=== PATIENT | male | born 1970 | race Caucasian/White ===

== ENCOUNTER 2016-08-15 11:22 | Emergency (ER) | payer MEDICARE, MEDICAID | END 2016-08-15 15:06 | disposition home or self-care (01) | LOC: D.ER 11:22 | DX: B20 Human immunodeficiency virus [HIV] disease (principal); B37.0 Candidal stomatitis ==

== ENCOUNTER → 2016-08-28 15:53 | Outpatient (CLI) | payer MEDICARE, MEDICAID | END | disposition home or self-care (01) | LOC: D.LABREF 15:53 | PROVIDERS: Student in an Organized Health Care Education/Training Program | DX: B20 Human immunodeficiency virus [HIV] disease (principal); Z79.2 Long term (current) use of antibiotics ==

== ENCOUNTER → 2016-09-19 12:26 | Outpatient (CLI) | payer MEDICARE, MEDICAID | END | disposition home or self-care (01) | LOC: D.RAD 12:26 | DX: R05 Cough (principal) ==

== ENCOUNTER 2016-09-24 09:48 | Emergency (ER) | payer MEDICARE, MEDICAID ==
[2016-09-24 10:53] LABS: MCH 31.9 pg (26.0-34.0); MCHC 34.3 g/dL (31.0-37.0); MCV 93.1 fL (80.0-100.0); MEAN PLATELET VOLUME 11.2 fL (7.4-10.4); PLATELET COUNT 77 10x3/uL (130-400); RBC 3.76 10x6/uL (4.20-6.10); RDW 13.3 % (11.5-14.5); WBC 2.8 10x3/uL (4.8-10.8)
[2016-09-24 10:58] LABS: ALBUMIN 3.3 g/dL (3.4-5.0); ALKALINE PHOSPHATASE 146 U/L (46-116); ALT (SGPT) 29 U/L (10-68); CALC OSMOLALITY 270 mosm/kg (275-300); CALCIUM 8.8 mg/dL (8.5-10.1); CARBON DIOXIDE 27.1 mmol/L (21.0-32.0); CHLORIDE - SERUM 104 mmol/L (98-107); CREATININE - SERUM 0.9 mg/dL (0.6-1.3); GLUCOSE 97 mg/dL (74-106); POTASSIUM - SERUM 3.8 mmol/L (3.5-5.1); PROTEIN - SERUM 7.2 g/dL (6.4-8.2); SODIUM 136 mmol/L (136-145); UREA NITROGEN 10 mg/dL (7-18); eGFR NON AFRICAN AMERICAN > 90 mL/min (90-120)
[2016-09-24 11:21] LABS: EOSINOPHILS 4 % (0-7); LYMPHOCYTES 25 % (15-50); MONOCYTES 10 % (2-11); NEUTROPHILS 60 % (40-80)
[2016-09-24 11:22] LABS: PLATELET ESTIMATE DECREASED
== END 2016-09-24 14:25 | disposition home or self-care (01) ==
LOC: D.ER 09:48
PROVIDERS: Family Medicine
DX: M54.30 Sciatica, unspecified side (principal); L03.211 Cellulitis of face; B20 Human immunodeficiency virus [HIV] disease; F17.200 Nicotine dependence, unspecified, uncomplicated

== ENCOUNTER 2018-09-01 01:31 | Emergency (ER) | payer MEDICARE ==
[~2018-09-01] VITALS: Ht 185.4 cm; Wt 82.7 kg
[2018-09-01 01:41] VITALS: Ht 185.4 cm; Wt 82.7 kg
[2018-09-01 02:15] LABS: APPEARANCE CLOUDY (CLEAR); BACTERIA NONE SEEN /hpf (NONE SEEN); BILIRUBIN NEGATIVE (NEGATIVE); COLOR DK YELLOW (YELLOW); EPITHELIAL CELLS 0-5 /hpf (0-5); GLUCOSE NEGATIVE (NEGATIVE); KETONE SMALL mg/dL (NEGATIVE); NITRITE NEGATIVE (NEGATIVE); PROTEIN TRACE mg/dL (NEGATIVE); RED CELLS - URINE >50 /hpf (0-5); SPECIFIC GRAVITY 1.025 (1.005-1.020); UROBILINOGEN NORMAL (NORMAL); WHITE CELLS - URINE NSEEN /hpf (0-5)
[2018-09-01 02:20] LABS: EOSINOPHILS 4.2 % (0-7); HEMATOCRIT 42.9 % (42.0-54.0); HEMOGLOBIN 15.3 g/dL (13.5-17.5); IMMATURE GRANULOCYTES 0.2 % (0-5); MCHC 35.7 g/dL (31.0-37.0); MCV 92.7 fL (80.0-100.0); MEAN PLATELET VOLUME 8.9 fL (7.4-10.4); MONOCYTES 9.5 % (2-11); NEUTROPHILS 47.1 % (40-80); RBC 4.63 10x6/uL (4.20-6.10); RDW 11.8 % (11.5-14.5); WBC 8.2 10x3/uL (4.8-10.8)
[2018-09-01 02:33] LABS: ALBUMIN 3.8 g/dL (3.4-5.0); ALKALINE PHOSPHATASE 128 U/L (46-116); ALT (SGPT) 22 U/L (10-68); AMYLASE - SERUM 52 U/L (25-115); BILIRUBIN - TOTAL 0.29 mg/dL (0.2-1.3); CALC OSMOLALITY 276 mosm/kg (275-300); CALCIUM 9.4 mg/dL (8.5-10.1); CARBON DIOXIDE 26.2 mmol/L (21.0-32.0); CHLORIDE - SERUM 106 mmol/L (98-107); CREATININE - SERUM 1.1 mg/dL (0.6-1.3); GLUCOSE 141 mg/dL (74-106); LIPASE 93 U/L (73-393); POTASSIUM - SERUM 3.8 mmol/L (3.5-5.1); PROTEIN - SERUM 7.5 g/dL (6.4-8.2); SODIUM 140 mmol/L (136-145); eGFR NON AFRICAN AMERICAN 77 mL/min (90-120)
[2018-09-01 02:36] LABS: PLATELET COUNT 235 10x3/uL (130-400)
[2018-09-01 02:54] LABS: UREA NITROGEN 16 mg/dL (7-18)
[2018-09-01] MEDS ORDERED: FLOMAX0.4 MG PO (04:21)
[2018-09-01] MEDS ORDERED: HYDROCODON-ACE1 EAC7 PO (04:21)
[2018-09-01 04:55] VITALS: BP 125/81
== END 2018-09-01 04:56 | disposition home or self-care (01) ==
LOC: D.ER 01:31
PROVIDERS: Family Medicine
DX: N20.1 Calculus of ureter (principal); R10.12 Left upper quadrant pain; R10.32 Left lower quadrant pain

== ENCOUNTER 2018-09-18 01:13 | Inpatient (IN) | payer MEDICARE ==
[~2018-09-18] VITALS: Ht 185.4 cm; Wt 84.1 kg
--- NOTE | ~2018-09-18 | HEMODYNAMI ---
PATIENT:FRANCOIS REAGAN MEDICAL RECORD: [id number] : 74 [facility] D.2125 ADMISSION DATE: 09/18/18 Generatedon:09/18/201812:38 Patient name: FRANCOIS REAGAN Patient #: [id number] SSN: : 1970 Date of study: 09/18/2018 Page: Of Hemodynamic Procedure Report Patient Data Patient Demographics Procedure consent was obtained First Name: FRANCOIS Gender: Male Last Name: TEZ : 1970 [facility] Initial: L Age: 48 year(s) Patient #: [id number] Race: Unknown Additional ID: [id number] Contact details Address: [address] [place] [address] State: [place] City: [facility] Zip code: [address] Past Medical History Allergies Allergen Reaction Date Comments Reported Other allergy 09/18/2018 sulfa Admission Admission Data Admission Date: 09/18/2018 Admission Time: 10:49 Admit Source: Emergency department Room #: D.2125 Lab Results Lab Result Date: 09/18/2018 Lab Result Time: 1:26 Biochemistry Name Units Result Min Max BUN mg/dl 13 --(--*-)-- 7 18 Creatinine mg/dl 1.1 --(--*-)-- 0.6 1.3 CBC Name Units Result Min Max Hematocrit % 46.7 --(-*--)-- 42 54 Hemoglobin g/dl 17 --(---*)-- 13.5 17.5 Procedure Procedure Types Cath Procedure Diagnostic Procedure LHC LHC w/Coronaries FFR/IVUS FFR Initial Sedation Charges Moderate Sedation up to 15 minutes PCI Procedure Coronary Stent Coronary Stent Initial Procedure Description Procedure Date Procedure Date: 09/18/2018 Procedure Start Time: 12:17 Procedure End Time: 12:37 Procedure Staff Name Function Rodney Herring MD Performing Physician Delroy Morrow RT Monitor Hank Pino RT Scrub Mariano Mccain RN Nurse Etienne Benites RN Braille Coder Procedure Data Cath Procedure Fluoroscopy Diagnostic fluoroscopy Total fluoroscopy Time: 4.5 time: 4.5 min min Diagnostic fluoroscopy Total fluoroscopy dose: 364 dose: 364 mGy mGy Contrast Material Contrast Material Type Amount (ml) Isovue 300 95 Entry Location Entry Primary Successful Side Size Upsize Upsize Entry Closure Zuniga ccessful Closure Location (Fr) 1 (Fr) 2 (Fr) Remarks Device Remarks Radial Right 6 Fr Mechanical artery Short Compression Estimated blood loss: 10 ml Diagnostic catheters Device Type Used For End Catheter Placement DIAGNOSTIC [place] 4.5 5Fr Procedure catheter ([id number]) Procedure Complications No complications Procedure Medications Medication Administration Route Dosage 0.9% NaCl I.V. 100 ml/hr Oxygen etCO2 Nasal cannula 2 l/min Heparin Flush Bag added to field 2 bags (1000units/500ml NS) Lidocaine 2% added to field 20 Radial Cocktail added to field 1 syringe (Verapamil 2mg/Nitro 400mcg/Heparin 1500units) Versed I.V. 2 mg Fentanyl I.V. 100 mcg Radial Cocktail I.A. 1 syringe (Verapamil 2mg/Nitro 400mcg/Heparin 1500units) Heparin Bolus I.V. 4000 units Versed I.V. 2 mg Hemodynamics Rest HGB: 17 (g/dl) Heart Rate: 66 (bpm) Snapshots Pre Cath Intra NCS Post Cath Vital Signs Time Heart Resp SPO2 etCO2 NIBP Rhythm Pain Sedation Rate (ipm) (%) (mmHg) (mmHg) Status Level (bpm) 12:02:46 64 14 99 29.4 116/85(99) NSR 0 (11) 10(A) , No pain 12:06:50 63 15 100 31.7 114/73(90) NSR 0 (11) 10(A) , No pain 12:10:53 62 13 99 34.7 107/71(89) NSR 0 (11) 10(A) , No pain 12:14:55 65 12 97 35.4 99/73(88) NSR 0 (11) 10(A) , No pain 12:18:57 73 15 98 27.9 98/65(81) NSR 0 (11) 10(A) , No pain 12:22:59 79 14 95 29.4 89/59(77) NSR 0 (11) 10(A) , No pain 12:26:56 78 15 94 30.9 97/61(83) NSR 0 (11) 10(A) , No pain 12:30:58 75 12 95 32.4 93/63(84) NSR 0 (11) 10(A) , No pain 12:34:57 69 12 95 31.7 94/63(81) NSR 0 (11) 10(A) , No pain Medications Time Medication Route Dose Verified Delivered Reason Not es Effectiveness by by 12:05:28 0.9% NaCl I.V. 100 Mariano Mariano Per physician ml/hr Adán Mccain RN RN 12:05:37 Oxygen etCO2 2 l/min Mariano Mariano for low 02 sats Nasal Lorigan Adán cannula RN RN 12:05:51 Heparin Flush added 2 bags Mariano Mariano used for Bag to Lorigan Adán procedure (1000units/500ml field RN RN NS) 12:06:01 Lidocaine 2% added 20ml Mariano Mariano for local to vial Lorigan Lorigan anesthetic field HAYNES RN 12:06:11 Radial Cocktail added 1 Mariano Mariano used for (Verapamil to syringe Lorigan Lorping procedure 2mg/Nitro field HAYNES RN 400mcg/Heparin 1500units) 12:15:54 Versed I.V. 2 mg Mariano Mariano for sedation Adán Mccain RN RN 12:16:02 Fentanyl I.V. 100 mcg Mariano Mariano for sedation Adán Mccain RN RN 12:18:15 Radial Cocktail I.A. 1 Mariano Rodney for (Verapamil syringe Lorigan Tauth MD vasodilation 2mg/Nitro RN 400mcg/Heparin 1500units) 12:21:49 Versed I.V. 2 mg Mariano Mariano for sedation Adán Mccain RN RN 12:23:02 Heparin Bolus I.V. 4000 Mariano Mariano for units Lorigan Adán anticoagulation RN lead portfolio manager Log Time Note 10:45:54 Etienne Benites RN sent for patient. Start room use. 11:52:19 Informed consent obtained and on chart 11:52:34 Admit Source: Emergency department 11:52:52 Diagnostic Cath status Elective 11:53:02 Time tracking: Regular hours (M-F 7:00 - 5:00) 11:53:05 Plan of Care:Hemodynamics will remain stable., Cardiac rhythm will remain stable., Comfort level will be maintained., Respiratory function will remain adequate., Patient/ family verbilizes understanding of procedure., Procedure tolerated without complication., Recovers from procedure without complications.. 11:55:13 Lab Result : Hemoglobin 17 g/dl :: Lab Result : Creatinine 1.1 mg/dl :: Lab Result : BUN 13 mg/dl :: Lab Result : Hematocrit 46.7 % 11:55:23 Lab results completed and on chart. 11:56:48 Patient received from Med II to CCL 2 Alert and oriented. Tansferred to table in Supine position. 11:56:49 Warm blankets applied, and ilan hugger turned on for patient comfort. 11:56:49 Correct patient and procedure confirmed by team. 11:56:50 ECG and BP/O2 sat monitors applied to patient. 11:56:51 Pre-procedure instructions explained to patient. 11:56:51 Pre-op teaching completed and patient verbalized understanding. 11:56:53 Family in patients room. 11:56:55 Patient NPO since Midnight. 11:57:11 Patient allergic to Other allergysulfa 12:01:48 Vital chart was started 12:05:28 0.9% NaCl 100 ml/hr I.V. was administered by Mariano Mccain RN; Per physician; 12:05:37 Oxygen 2 l/min etCO2 Nasal cannula was administered by Mariano Mccain RN; for low 02 sats; 12:05:51 Heparin Flush Bag (1000units/500ml NS) 2 bags added to field was administered by Mariano Mccain RN; used for procedure; 12:06:01 Lidocaine 2% 20ml vial added to field was administered by Mariano Mccain RN; for local anesthetic; 12:06:11 Radial Cocktail (Verapamil 2mg/Nitro 400mcg/Heparin 1500units) 1 syringe added to field was administered by Mariano Mccain RN; used for procedure; 12:12:00 Baseline sample Acquired. 12:12:03 Rhythm: sinus rhythm 12:12:04 Full Disclosure recording started 12:12:08 H&P Date Dictated: 09/18/2018 Within 30 days and on chart.. 12:12:11 Is the patient allergic to Iodine/contrast media? No. 12:12:23 Is patient on blood thinner?Yes 12:: ACC The patient was administered the following blood thiners within the last 24 hours: ACCPlavix 12:12:31 Patient diabetic? No. 12:12:34 Previous problem with sedation/anesthesia? No ? 12:12:36 Snore? Yes 12:12:37 Sleep apnea? No 12:12:37 Deviated septum? No 12:12:38 Opens mouth fully? Yes 12:12:39 Sticks out tongue? Yes 12:12:40 Airway obstruction? No ? 12:12:44 Dentures? Yes in tight 12:12:48 Pre procedure: right dorsailis pedis pulse 2+ Normal; easily identifiable; not easily obliterated 12:12:49 Modified Theo's test Ulnar < 7 seconds 12:12:50 Patient pain scale 0/10 ?. 12:12:56 IV patent on arrival in left forearm with 0.9% NaCl at [facility]. 12:13:01 Right Radial & Right Groin area was prepped with chlora-prep and draped in sterile fashion 12:13:03 Alarms reviewed by R. N. 12:13:03 Sharps counted by scrub and verified by R.N. 12:13:08 ACIST Syringe (35482) opened to sterile field. 12:13:08 Bag Decanter (2002S) opened to sterile field. 12:13:08 Medline Cath Pack ([id number]) opened to sterile field. 12:13:09 ACIST Hand Control (23001) opened to sterile field. 12:13:10 ACIST Manifold (66145) opened to sterile field. 12:13:11 Tegaderm 4 x 4 (1626W) opened to sterile field. 12:13:11 DIAGNOSTIC Multipack 5Fr catheter set (WG0538) opened to sterile field. 12:13:13 EMERALD Guide Wire (161-892) opened to sterile field. 12:13:23 Physician paged 12:15:12 Physician arrived 12:15:12 --------ALL STOP TIME OUT------ 12:15:13 Final Timeout: patient, procedure, and site verified with staff and physician. All members of the team are in agreement. 12:15:14 Right Radial & Right Groin site verified by team. 12:15:16 Maximum allowable Isovue 300 dose 300ml. Physician notified. (300ml for normal creatinines. For patients with creatinine of 1.7 or higher multiply weight(kg) x 5 divided by creatinine.) 12:15:19 Fire Safety Assessment: A--An alcohol-based skin anteseptic being used preoperatively., C--Open oxygen or nitrous oxide is being used., D--An ESU, laser, or fiber-optic light is being used. 12:15:21 Physical assessment completed. ASA score P 2 - A patient with mild systemic disease as per Rodney Herring MD. 12:15:23 Sedation plan: IV Moderate Sedation Medication:Versed, Fentanyl 12:15:54 Versed 2 mg I.V. was administered by Mariano Mccain RN; for sedation; 12:16:02 Fentanyl 100 mcg I.V. was administered by Mariano Mccain RN; for sedation; 12:17:29 Procedure started. 12:17:34 Local anesthetic to right radial artery with Lidocaine 2% by Rodney Herring MD.INITIAL ACCESS ONLY 12:17:43 A 6 Fr Short sheath was inserted into the Right Radial artery 12:17:54 Zero performed for pressure channel P1 12:18:15 Radial Cocktail (Verapamil 2mg/Nitro 400mcg/Heparin 1500units) 1 syringe I.A. was administered by Rodney Herring MD; for vasodilation; 12:18:47 SHEATH 6FR Slender (22-6927) opened to sterile field. 12:18:56 A DIAGNOSTIC [place] 4.5 5Fr catheter (833496) was advanced over the wire and used for Procedure. 12:19:08 LV gram done using JENKINS 12:19:10 Injector settings: Ml/sec: 5, Volume: 15, 12:19:12 LV hemodynamics recorded. 12:19:43 EF : 40 % 12:20:04 LCA angiography performed. 12:20:55 RCA angiography performed. 12:20:57 Catheter exchanged over wire. 12:21:10 CHOICE PT Extra Support 182cm wire ([id number]) opened to sterile field. 12:21:11 INFLATOR Merit BasixCompak (AJ1663) opened to sterile field. 12:21:42 GUIDE 6FR XBLAD 3.5 catheter ([id number]) opened to sterile field. 12:21:49 Versed 2 mg I.V. was administered by Mariano Lorigan RN; for sedation; 12:22:45 6 Fr xblad 3.5 guide catheter was inserted over the wire 12:23:02 Heparin Bolus 4000 units I.V. was administered by Mariano Mccain RN; for anticoagulation; 12:24:11 choice pt es wire advanced. 12:24:13 Wire advanced across lesion. 12:24:54 Pre PCI Site: [place] pLAD has 97% stenosis. 12:25:15 Place stent Inflation Number: 1 A COBRA RX 3.0 X 30 Stent was prepped and advanced across the Prox LAD 97. The stent was deployed at 14 AL for 0:10 (min:sec) 0. 12:25:51 Stent catheter was removed intact over wire. 12:25:52 Wire removed. 12:25:53 Guide catheter removed. 12:26:00 Post PCI Site: [place] pLAD has 0% stenosis. 12:26:07 GUIDE 6FR AR 1.0 catheter ([id number]) opened to sterile field. 12:26:07 [employer] Verrata Plus pressure wire (35965J) opened to sterile field. 12:26:13 6 Fr ar 1 guide catheter was inserted over the wire 12:28:22 FFR/IFR wire advanced. 12:29:40 Wire advanced across lesion. 12:31:50 mRCA lesion measured at 0.96 with IFR 12:33:38 Wire removed. 12:33:40 Guide Catheter removed. 12:33:49 TR BAND Standard ([id number]) opened to sterile field. 12:33:56 Sheath removed intact; hemostasis achieved with Mechanical Compression to the Right Radial artery. 12:33:57 Procedure ended.(Physican Out) 12:35:10 Fluoroscopy time 04.50 minutes. 12:35:14 Fluoroscopy dose: 364 mGy 12:35:14 Flurop Dose total: 364 12:35:33 Contrast amount:Isovue 300 95ml. 12:35:34 Sharps counted by scrub and verified by R.N. 12:35:35 TR band inflated with 12cc of air. 12:35:36 Insertion/operative site no bleeding no hematoma. 12:35:41 Post right radial artery:stable, soft, clean and dry 12:35:43 Post Procedure Pulses reassessed and unchanged 12:35:45 Post-procedure physical assessment completed. ASA score P 2 - A patient with mild systemic disease as per Rodney Herring MD. 12:35:47 Post procedure rhythm: unchanged. 12:35:49 Estimated blood loss: 10 ml 12:35:51 Post procedure instruction explained to patient.Patient verbalizes understanding. 12:35:51 Patient needs reinforcement of post procedure teaching. 12:36:12 Procedure type changed to Cath procedure, Diagnostic procedure, LHC, LHC w/Coronaries, FFR/IVUS, FFR Initial, Sedation Charges, Moderate Sedation up to 15 minutes, PCI procedure, Coronary Stent, Coronary Stent Initial 12:37:15 Procedure and supply charges have been captured, reviewed, submitted and are correct. 12:37:18 Procedure Complication : No complications 12:37:20 Vital chart was stopped 12:37:21 See physician's report for complete and final results. 12:37:22 Report given to Pre/Post Procedure Room. 12:37:25 Patient transfered to Pre/Post Procedure Room with Stretcher. 12:37:27 Procedure ended. 12:37:27 Full Disclosure recording stopped 12:38:01 End room use (Document Last) Intervention Summary Intervention Notes Time ActionType Lesion and Equipment Action# Pressure Duration Attributes Used 12:25:15 Place stent Prox LAD COBRA RX 1 14 00:10 3.0 X 30 Stent Device Usage Item Name Manufacture Quantity Catalog Number Hospital Part Current Minimal Lot# / Charge Number Stock Stock Serial# Code ACIST Syringe Acist 1 73769 738079 924596 252240 20 (78360) Medical Systems Inc Bag Decanter Microtek 1 2001S 979432 16583 945285 5 () Medical Inc. Medline Cath Medline 1 [id number] 652643 21008 713511 5 Pack ([id number]) ACIST Hand Acist 1 66032 727566 932426 142130 5 Control Medical (56796) Systems Inc ACIST Manifold Acist 1 27195 600331 205330 327999 5 (75297) Medical Systems Inc Tegaderm 4 x 4 3M 1 1626W 055511 725077 414316 5 (1626W) DIAGNOSTIC Cardinal 1 [id number] 714235 77835 264265 30 Multipack 5Fr Health catheter set (DN9901) EMERALD Guide Cardinal 1 502-455 534317 537694 333864 5 Wire (502455) Health SHEATH 6FR Terumo 1 [id number] 544803 718053 263630 5 Slender (80-1060) DIAGNOSTIC Terumo 1 40-8882 149800 939893 807101 5 [place] 4.5 5Fr catheter (209817) CHOICE PT [place] 1 [id number] 294922 648607 679064 5 Extra Support Scientific 182cm wire ([id number]) INFLATOR Merit Merit 1 GQ8532 870439 187929 931734 15 [email or web address] Medical (AY9912) GUIDE 6FR Cardinal 1 [id number] 455057 522122 230471 10 XBLAD 3.5 Health catheter ([id number]) COBRA RX 3.0 X Celonova 1 544-91-18223 857459 250242019 0651115 8 5 [id number] 30 stent Biosciences (217-25-37714) GUIDE 6FR AR Medtronic 1 [id number] 271717 11366 068382 1 1.0 catheter (ZH2XE65) [place] 1 93593X 843886 364432411 352659 5 Verrata Plus pressure wire (30809D) TR BAND Terumo 1 [id number]-[id number] 221605 935745 261718 40 Standard ([id number]) Signature Audit [place] Stage Time Signature Unsigned Intra-Procedure 09/18/2018 Delroy Morrow 12:38:47 PM RT(R) Signatures Monitor : Delroy Morrow RT Signature : Date : Time : [facility] [address] [place] [address]
--- NOTE | ~2018-09-18 | DS ---
PATIENT:FRANCOIS ANDERSON :74 MEDICAL RECORD: [id number] DISCHARGE SUMMARY ADMISSION DATE: 09/18/18 DISCHARGE DATE: 09/18/18 DIAGNOSES: 1. Non-Q-wave myocardial infarction. 2. Coronary artery disease. 3. Percutaneous transluminal coronary angioplasty stent, left anterior descending this admission. HOSPITAL COURSE: Mr. Anderson presents with anginal symptomatology, non-Q-wave myocardial infarction, found to have 99% stenosis of the LAD, underwent successful PTCA stent of the LAD, discharged home with the addition of aspirin, Plavix, Pravachol to his medical regimen. No beta alexa was undertaken due to resting bradycardia. He will follow up with [facility] in 1 month. TRANSINT:[id number] Voice Confirmation ID: [id number] DOCUMENT ID: [id number] CHERELLE JACOBS MD CC: [id number] DICTATION DATE: 09/18/18 1235 TIMBER TREATMENT PLANT OPERATOR: 09/19/18 0449 DIS IN 09/18/18 [facility] [address] [id number]
[~2018-09-18 01:13] MED LIST: FLOMAX0.4 MG PO; HYDROCODON-ACE1 EAC7 PO
[2018-09-18] MEDS ORDERED: JENTADUETO 2.51 EACH PO (01:19)
[2018-09-18 01:32] LABS: BASOPHILS 0.7 % (0-2); EOSINOPHILS 3.6 % (0-7); HEMATOCRIT 46.7 % (42.0-54.0); IMMATURE GRANULOCYTES 0.2 % (0-5); LYMPHOCYTES 33.9 % (15-50); MCHC 36.4 g/dL (31.0-37.0); MCV 90.7 fL (80.0-100.0); MEAN PLATELET VOLUME 9.1 fL (7.4-10.4); MONOCYTES 9.7 % (2-11); NEUTROPHILS 51.9 % (40-80); PLATELET COUNT 226 10x3/uL (130-400); RBC 5.15 10x6/uL (4.20-6.10); RDW 11.6 % (11.5-14.5); WBC 8.7 10x3/uL (4.8-10.8)
[2018-09-18 01:46] LABS: APTT 26.5 SECONDS (22.8-39.4); PROTIME 12.7 SECONDS (11.6-15.0)
[2018-09-18 01:50] LABS: ALBUMIN 3.9 g/dL (3.4-5.0); ALKALINE PHOSPHATASE 139 U/L (46-116); ALT (SGPT) 22 U/L (10-68); BILIRUBIN - TOTAL 0.26 mg/dL (0.2-1.3); CALC OSMOLALITY 281 mosm/kg (275-300); CALCIUM 9.6 mg/dL (8.5-10.1); CARBON DIOXIDE 26.9 mmol/L (21.0-32.0); CHLORIDE - SERUM 104 mmol/L (98-107); CREATININE - SERUM 1.1 mg/dL (0.6-1.3); GLUCOSE 116 mg/dL (74-106); PROTEIN - SERUM 7.7 g/dL (6.4-8.2); SODIUM 141 mmol/L (136-145); UREA NITROGEN 13 mg/dL (7-18); eGFR NON AFRICAN AMERICAN 76 mL/min (90-120)
[2018-09-18 02:09] LABS: CKMB 1.6 U/L (0.0-3.6); CREATINE KINASE 115 UL (21-232); MAGNESIUM - SERUM 1.9 mg/dL (1.8-2.4)
[2018-09-18 02:10] LABS: TROPONIN-I 0.153 ng/mL (0.000-0.060)
[2018-09-18 02:29] VITALS: BP 122/76
[2018-09-18 03:30] VITALS: BP 118/76
[2018-09-18 04:29] VITALS: BP 109/67
--- NOTE | 2018-09-18 05:00 | NUR ---
PATIENT TO THE FLOOR VIA WHEELCHAIR. SET UP IV PUMP, PATIENT STATES HE HAS NO NEEDS AT THIS TIME HE IS JUST TIRED.
[2018-09-18 05:13] VITALS: BP 101/51; Ht 185.4 cm; Wt 84.1 kg
--- NOTE | 2018-09-18 07:25 | NUR ---
ROUNDING DONE WITH PATIENT LAYING ON LEFT SIDE RESTING WITH EYES CLOSED, RESP EVEN. ON ROOM AIR. LEFT AC PIV SEEN WITH NS INFUSING AT 125 CC/HR. NPO STATUS UNTIL SEEN PER CARDIOLOGY. ON HEART MONITOR SHWOING SR, HR 55. WILL MONITOR.
--- NOTE | 2018-09-18 07:43 | NUR ---
PATIENT REFUSES TO WEAR SCD'S.
[2018-09-18 09:47] VITALS: BP 94/62
--- NOTE | 2018-09-18 10:19 | NUR ---
UP TO USE RESTROOM, HIBICLENS PREP DONE FOR HEART CATH. PRE-OP MEDS GIVEN ALONG WITH PLACING PATIENT ON NASAL CANNULA AT 2L.
--- NOTE | 2018-09-18 10:25 | HP ---
PATIENT: FRANCOIS ANDERSON MEDICAL RECORD: [id number] ACCOUNT: [id number] LOCATION:[address] : 74 ADMISSION DATE: 09/18/18 PCP: [facility] HISTORY AND PHYSICAL EXAMINATION DIAGNOSES: 1. Non-Q-wave myocardial infarction. 2. Coronary artery disease. 3. Family history of coronary artery disease. 4. Human immunodeficiency virus. HISTORY OF PRESENT ILLNESS: Mr. Anderson has no past history of coronary artery disease. He presents with 1 week of severe chest pain last night. His troponin is positive for non-Q-wave myocardial infarction. He continues to have episodes of chest pain this morning. His heart rate is optimal at 58. Systolic blood pressure is optimal at 109. PHYSICAL EXAMINATION: GENERAL APPEARANCE: Well-nourished, well-developed, appears stated age. Level of distress, comfortable. PSYCHIATRIC: Mental status, alert, normal affect. Orientation, oriented to time, place and person. EYES: Lids and conjunctiva, noninjected. No discharge, no pallor. ENT: Lips, teeth, gums, normal dentition. Oropharynx, no cyanosis, no pallor. NECK: Carotid arteries, bilateral normal upstroke, no bruits, no thrills. JUGULAR VEINS: No jugular venous pressure or distention. CERVICAL LYMPH NODES: Nontender, nonenlarged. THYROID: Not enlarged. Nontender. No nodules. LUNGS: Respiratory effort, unlabored. CHEST: Normal curvature. No thoracic deformity. No chest wall tenderness. Percussion, resonant. Auscultation, clear. No wheezes, no rales, no rhonchi. CARDIOVASCULAR: Precordial exam, nondisplaced. No heaves or pericardial thrills. Rate and rhythm, regular. Heart sounds, normal S1, normal S2. No S3, no gallop, no rub. Systolic murmur, not heard. Diastolic murmur, not heard. EXTREMITIES: No cyanosis, no edema. Peripheral pulses, full and equal in all extremities, except as noted. No bruits appreciated. ABDOMEN: Soft, nondistended. Normal aorta. No bruit. Nontender. No masses. Liver, nontender, no hepatomegaly. Spleen, nontender, no splenomegaly. MUSCULOSKELETAL: No joint tenderness. No joint swelling. No erythema. NEUROLOGICAL: Normal gait, normal strength, normal tone. SKIN: Warm and dry. OVERALL IMPRESSION: Continued chest pain with non-Q-wave myocardial infarction despite optimal heart rate and blood pressure control. We will proceed with coronary angiography. Further care depends upon findings of the angiography. TRANSINT:[id number] Voice Confirmation ID: [id number] DOCUMENT ID: [id number] HISTORY AND PHYSICAL [id number] FRANCOIS ANDERSON JEFFREY MD at 1025 CC: [id number] DICTATION DATE: 09/18/18922 DEHYDROGENATION CONVERTER OPERATOR: 09/18/18 1007 ADM IN [facility] [address] [place] [id number]
--- NOTE | 2018-09-18 11:52 | NUR ---
TO TUBE OPERATOR VIA BED.
--- NOTE | 2018-09-18 11:54 | NUR ---
TO TANK PROCESSOR VIA BED.
--- NOTE | 2018-09-18 12:45 | NUR ---
PT RECEIVED VIA KANIKA FROM MONITORING SPECIALIST FOR RECOVERY. PT AWAKE BUT DROWSY. IV IN L ARM PATENT INFUSING VIA ORDERS. TR BAND AND IMMOBILIZER TO R WRIST. DRESSING CDI NO BLEEDING OR SWELLING NOTED. ARM PINK AND WARM, CAP REFILL BRISK. LINDA NSR RATE 74, BP 99/60, 02 SAT 96 ON 2L/NC. PT INSTRUCTED ON NOT USING R ARM IF POSSIBLE, HE VERBALIZED UNDERSTANDING. COFFEE GIVEN PER REQUEST. CALL LIGHT IN REACH
[2018-09-18] MEDS ORDERED: PRAVACHOL20 MG PO (12:55)
[2018-09-18] MEDS ORDERED: PLAVIX75 MG PO (12:56)
[2018-09-18] MEDS ORDERED: BAYER CHEWABLE81 MG PO (13:06)
--- NOTE | 2018-09-18 13:15 | NUR ---
PT RESTING COMFORTABLY, DENIES PAIN OR DISCOMFORT. TR BAND IN PLACE, DRESSING CDI NO BLEEDING OR SWELLING NOTED. BP 135/75, HR 58. DR JACOBS IN AND SPOKE WITH PT REGARDING PLAN OF CARE AND PROCEDURE RESULTS. CALL LIGHT IN REACH.
--- NOTE | 2018-09-18 14:00 | NUR ---
PT RESTING W/O COMPLAINTS. TOLERATED LUNCH W/O NAUSEA. TR BAND TO R WRIST, NO BLEEDING OR SWELLING NOTED. DENIES NEEDS AT THIS TIME. VSS, FRIEND REMAINS AT BEDSIDE, CALL LIGHT IN REACH
--- NOTE | 2018-09-18 14:30 | NUR ---
PT VOIDED 450 CC CLEAR YELLOW URING IN URINAL. TR BAND TO R WRIST IN PLACE, DRESSING REMAINS CDI NO BLEEDING OR SWELLING NOTED. VSS. CALL LIGHT IN REACH
--- NOTE | 2018-09-18 15:00 | NUR ---
PT RESTING COMFORTABLY, TR BAND AND IMMOBILIZER IN PLACE, DRESSING REMAINS CDI NO BLEEDING OR SWELLING NOTED. HR 59, BP 103/70, 02 SAT 100. CALL LIGHT IN REACH
--- NOTE | 2018-09-18 15:36 | NUR ---
4CC OF AIR REMOVED FROM TR BAND, NO BLEEDING OR SWELLING NOTED. PT HAS NO COMPLAINTS OR NEEDS AT THIS TIME
--- NOTE | 2018-09-18 16:06 | NUR ---
4 ADD'L CC OF AIR REMOVED FROM TR BAND, NO BLEEDING NOTED. HR NSR RATE 60, BP 98/66. O2 REMOVED, SAT 98 ON ROOM AIR.
--- NOTE | 2018-09-18 16:19 | NUR ---
DISCHARGE INSTRUCTIONS REVIEWED W PT HE VERBALIZED UNDERSTANDING. IV REMOVED W CATH INTACT, MONITORS REMOVED. PT UP TO DRESS FOR DISCHARGE.
--- NOTE | 2018-09-18 16:32 | NUR ---
REMAINING AIR AND TR BAND REMOVED W/O BLEEDING OR HEMATOMA NOTED. 2X2 AND TEGADERM DRESSING APPLIED. IMMOBILIZER IN PLACE. PT DISCHARGED VIA WC TO PRIVATE VEHICLE W ALL BELONGINGS.
--- NOTE | 2018-09-18 16:33 | NUR ---
PT TOOK HIS DISCHARGE PAPERWORK AND THE SIGNED COPY WITH HIM. ATTEMPTED TO CALL HIS CELL NUMBER AND GOT NO ANSWER. LEFT MESSAGE THAT WE NEED THAT COPY BACK IF POSSIBLE.
--- NOTE | 2018-09-18 18:07 | OP ---
PATIENT NAME: FRANCOIS REAGAN MEDICAL RECORD: [id number] :74 LOCATION:[facility] ADMISSION DATE:09/18/18 SURGEON: CHERELLE JACOBS MD DATE OF OPERATION: 09/18/2018 PROCEDURES: 1. PTCA stent LAD. 2. IFR. 3. Left heart catheterization. 4. Selective coronary angiography. 5. Left ventriculogram. INDICATION: Non-Q-wave myocardial infarction. PROCEDURE IN DETAIL: After informed consent was obtained and after a detailed description of the risks, benefits as well as alternative therapies, the patient elected to proceed with angiogram and angioplasty. The right radial area was prepped and draped in normal sterile fashion. Right radial artery was cannulated via modified Seldinger technique with placement of 6-Icelandic sheath. All catheters exchanged through this sheath. FINDINGS: The left ventriculogram was performed in standard 30-degree JENKINS view, reveals anteroapical hypokinesis, ejection fraction 40%. SELECTIVE CORONARY ANGIOGRAPHY: 1. Left main is with no significant angiographic disease. 2. Left anterior descending has 97% stenosis proximally. 3. The left circumflex has mild irregularities, but no flow-limiting stenosis. 4. The right coronary has a questionable stenosis in the mid vessel; however IFR was normal. PTCA STENT OF THE LAD: The stent used was a 3.0 x 30 mm caliber. Result was 0% residual stenosis. OVERALL IMPRESSION: Successful PTCA stent of the LAD going from 97% initial stenosis to 0% residual. TRANSINT:[id number] Voice Confirmation ID: [id number] DOCUMENT ID: [id number] CHERELLE JACOBS MD at 1807 CC: [id number] DICTATION DATE: 09/18/18 1237 ELECTRICIAN TECHNICIAN: 09/18/18 1357 DIS IN 09/18/18 [facility] [address] [place] [address]
== END 2018-09-18 16:35 | disposition home or self-care (01) | DRG 249 ==
LOC: D.ER 01:13 → D.M2 03:11 → OBSVTIME 03:11 → D.M2 03:11 → D.CLR 12:45
PROVIDERS: Family Medicine; ADMIT Internal Medicine Interventional Cardiology; ATTEND Internal Medicine Interventional Cardiology
PROC: B2151ZZ Fluoroscopy of Left Heart using Low Osmolar Contrast (ICD-10-PCS; 2018-09-18)
PROC: 4A023N7 Measurement of Cardiac Sampling and Pressure, Left Heart, Percutaneous Approach (ICD-10-PCS; 2018-09-18)
PROC: 02703DZ Dilation of Coronary Artery, One Artery with Intraluminal Device, Percutaneous Approach (ICD-10-PCS; principal; 2018-09-18 10:45)
PROC: B2111ZZ Fluoroscopy of Multiple Coronary Arteries using Low Osmolar Contrast (ICD-10-PCS; 2018-09-18 10:45)
DX: I21.4 Non-ST elevation (NSTEMI) myocardial infarction (principal); B20 Human immunodeficiency virus [HIV] disease; I25.10 Atherosclerotic heart disease of native coronary artery without angina pectoris; R00.1 Bradycardia, unspecified

== ENCOUNTER 2019-11-24 04:29 | Emergency (ER) | payer MEDICARE ==
[~2019-11-24] VITALS: Ht 185.4 cm; Wt 86.4 kg
[~2019-11-24 04:29] MED LIST changes: +BAYER CHEWABLE81 MG PO; +JENTADUETO 2.51 EACH PO; +PLAVIX75 MG PO; +PRAVACHOL20 MG PO
[2019-11-24 04:35] VITALS: Ht 185.4 cm; Wt 86.4 kg
[2019-11-24 05:05] LABS: BACTERIA NONE SEEN /hpf (NONE SEEN); BILIRUBIN NEGATIVE (NEGATIVE); EPITHELIAL CELLS RARE /hpf (0-5); KETONE NEGATIVE (NEGATIVE); NITRITE NEGATIVE (NEGATIVE); UROBILINOGEN NORMAL (NORMAL); WHITE CELLS - URINE RARE /hpf (0-5)
[2019-11-24] MEDS ORDERED: ULTRAM50 MG PO (05:25)
[2019-11-24 06:01] VITALS: BP 110/72
== END 2019-11-24 06:00 | disposition home or self-care (01) ==
LOC: D.ER 04:29
PROVIDERS: Family Medicine
DX: N20.0 Calculus of kidney (principal); I25.2 Old myocardial infarction; R10.9 Unspecified abdominal pain; B20 Human immunodeficiency virus [HIV] disease; Z72.0 Tobacco use